=== PATIENT | female | born 1950 | race Caucasian/White ===

== ENCOUNTER 2018-12-30 23:04 | Emergency (ER) | payer MEDICARE, BC ==
[~2018-12-30] VITALS: Ht 160 cm; Wt 91.4 kg
[~2018-12-30 23:04] MED LIST: LEVO75TA5 PO; VALS320T2 PO
[2018-12-30 23:05] VITALS: Ht 160 cm; Wt 91.4 kg
[2018-12-30] MEDS ORDERED: NICARDipine HCL 30 MG CAPSULE PO ONE (23:30)
--- NOTE | 2018-12-30 23:48 | ERD ---
ER Documentation Chief Complaint Chief Complaint BIB [id number] for nosebleed that started 30 minutes ago, hx of htn HPI Patient is a 68-year-old female with hypertension who presents with a nosebleed. The patient was brought in by ambulance. The patient had high blood pressure as well. She is a history of high blood pressure. The symptoms started 40 minutes ago. The patient said that she was bleeding from the left nares. She did take her blood pressure medicine today. She denies trauma. It started after she sneezed. She is not on blood thinning medicines. She has had nosebleed in the past. Her primary doctor is Dr. Brennan. ROS All systems reviewed and are negative except as per history of present illness. Medications Home Meds Reported Medications Levothyroxine Sodium* (Levothyroxine Sodium*) 75 Mcg Tablet, 75 MCG PO AC BREAKFAST, TAB 06/05/14 Valsartan* (Diovan*) 320 Mg Tablet, 320 MG PO BID, TAB 06/05/14 Allergies Allergies: Coded Allergies: No Known Allergy (Unverified , 06/05/14) PMhx/Soc Medical and Surgical Hx: pt denies Surgical Hx History of Surgery: No Anesthesia Reaction: No Hx Neurological Disorder: No Hx Respiratory Disorders: No Hx Cardiac Disorders: Yes (HTN) Hx Psychiatric Problems: No Hx Alcohol Use: No Hx Substance Use: No Hx Tobacco Use: No Smoking Status: Never smoker FmHx Family History: No diabetes Physical Exam Vitals Vital Signs Date Temp Pulse Resp B/P (MAP) Pulse Ox O2 O2 Flow FiO2 Time Delivery Rate 12/30/18 95 22 191/114 98 Room Air 23:20 (139) 12/30/18 99.1 105 20 220/119 97 23:05 (152) Physical Exam Const: No acute distress Head: Atraumatic Eyes: Normal Conjunctiva ENT: Nasal clamp in place, dried blood in the left nares without active bleeding at this time Neck: Full range of motion. No meningismus. Resp: Clear to auscultation bilaterally Cardio: Regular rate and rhythm, no murmurs Abd: Soft, non tender, non distended. Normal bowel sounds Skin: No petechiae or rashes Back: No midline or flank tenderness Ext: No cyanosis, or edema Neur: Awake and alert Psych: Normal Mood and Affect Results 24 hrs Current Medications Medications Dose Sig/Saen Start Time Status Last (Trade) Ordered Route PRN Stop Time Admin Dose Reason Admin Nicardipine 30 mg ONCE ONCE 12/30/18 DC 12/30/18 HCl PO 23:30 23:28 (Cardene) 12/30/18 23:31 Procedures/MDM Patient is a 68-year-old female presents with leading to the left nares. I believe this is an anterior nosebleed. The patient is not on blood thinning medicines. Her blood pressure was elevated upon arrival. She was given Cardene and her blood pressure has improved from what it was upon arrival. I took the nasal clamp off and she has had no further bleeding here in the emergency department. I would like to hold off on placing a nasal tampon for the patient at this time. She will need to follow-up closely with a primary doctor within 24 to 48 hours. She can return sooner for any worsening symptoms. Departure Diagnosis: Primary Impression: HTN (hypertension) Hypertension type: essential hypertension Qualified Codes: I10 - Essential (primary) hypertension Additional Impression: Epistaxis Condition: Fair Patient Instructions: High Blood Pressure (Hypertension), Epistaxis (Adult) Referrals: RICO BRENNAN MD (PCP) Additional Instructions: Call your primary care doctor TOMORROW for an appointment during the next 1-2 days.See the doctor sooner or return here if your condition worsens before your appointment time. ANDRIY DIETZ MD Dec 30, 2018 23:48
[2018-12-31 00:38] VITALS: BP 135/92; PULSE 91; RESP 18
== END 2018-12-31 01:04 | disposition home or self-care (01) ==
LOC: E/R 23:04
DX: R04.0 Epistaxis (principal); I10 Essential (primary) hypertension
CPT/HCPCS: 99283